=== PATIENT | female | born 1970 | race Caucasian/White ===

== ENCOUNTER 2020-05-23 03:33 | Emergency (ER) | payer MEDICAID, OTHER ==
[2020-05-23] MEDS ORDERED: Boostrix 0.5 ML (Tdap) VIAL ONE (04:08)
[2020-05-23] MEDS ORDERED: Sodium Chloride Irrig Solution 250 ML ONE (04:54)
--- NOTE | 2020-05-23 07:44 | RAD ---
EXAM: 2 views of the left forearm HISTORY: Dog bite to the form with pain COMPARISON: None FINDINGS: There is no evidence of acute fracture or dislocation. Moderate soft tissue swelling is see n. Air is seen in the soft tissues. Slight radiopaque structures along the volar aspect of the forearm likely represent folds of skin rather than radiopaque foreign bodies in the soft tissues. No degenerative changes are seen in the wrist or elbow. IMPRESSION: No evidence of acute osseous abnormality.
== END 2020-05-23 04:48 | disposition home or self-care (01) ==
LOC: MADERS 03:33
DX: S51.852A Open bite of left forearm, initial encounter (principal); I10 Essential (primary) hypertension; W54.0XXA Bitten by dog, initial encounter
CPT/HCPCS: 90471; 90715

== ENCOUNTER 2020-05-25 17:57 | Emergency (ER) | payer OTHER ==
[2020-05-25] MEDS ORDERED: Lidocaine 2% w/Epinephrine 1:200K 20 ML VIAL ONE (20:14)
[2020-05-25] MEDS ORDERED: Sodium Chloride Irrig Solution 250 ML ONE (21:07)
== END 2020-05-25 20:43 | disposition home or self-care (01) ==
LOC: MADERS 17:57
DX: S51.852A Open bite of left forearm, initial encounter (principal); S51.812A Laceration without foreign body of left forearm, initial encounter; S50.811A Abrasion of right forearm, initial encounter; I10 Essential (primary) hypertension; Z79.899 Other long term (current) drug therapy; W54.0XXA Bitten by dog, initial encounter
CPT/HCPCS: 12002

== ENCOUNTER 2020-09-04 08:49 | Emergency (ER) | payer MEDICAID, OTHER | END 2020-09-04 10:01 | disposition home or self-care (01) | LOC: MADERS 08:49 | DX: L02.511 Cutaneous abscess of right hand (principal); A69.20 Lyme disease, unspecified; K59.00 Constipation, unspecified; G43.909 Migraine, unspecified, not intractable, without status migrainosus; I10 Essential (primary) hypertension | CPT/HCPCS: 99283 ==

== ENCOUNTER 2021-07-01 10:01 | Emergency (ER) | payer OTHER | END 2021-07-01 11:39 | disposition home or self-care (01) | LOC: MADERS 10:01 | DX: S89.92XA Unspecified injury of left lower leg, initial encounter (principal); M17.12 Unilateral primary osteoarthritis, left knee; I10 Essential (primary) hypertension; X50.1XXA Overexertion from prolonged static or awkward postures, initial encounter; Z79.899 Other long term (current) drug therapy ==

== ENCOUNTER 2021-10-15 14:55 | Outpatient (CLI) | payer OTHER ==
[2021-10-15 15:28] LABS: CKMB 1.8 ng/mL (0-6.6)
== END 2021-10-15 14:56 | disposition home or self-care (01) ==
LOC: MADEKG 14:55
PROVIDERS: ATTEND Family Medicine
DX: R07.89 Other chest pain (principal); R06.00 Dyspnea, unspecified
CPT/HCPCS: 36415; 71046; 82553; 84484; 93005; 93010

== ENCOUNTER 2021-12-15 14:56 | Emergency (ER) | payer MEDICAID | END 2021-12-15 17:30 | disposition home or self-care (01) | LOC: MADERS 14:56 | DX: M19.011 Primary osteoarthritis, right shoulder (principal); G89.29 Other chronic pain; M25.511 Pain in right shoulder; I10 Essential (primary) hypertension ==

== ENCOUNTER 2022-05-17 08:55 | Outpatient (CLI) | payer OTHER | END 2022-05-17 08:56 | disposition home or self-care (01) | LOC: MADRAD 08:55 | PROVIDERS: ATTEND Family Medicine | DX: R06.00 Dyspnea, unspecified (principal) | CPT/HCPCS: 71046 ==

== ENCOUNTER 2022-06-04 09:59 | Outpatient (CLI) | payer OTHER | END 2022-06-04 10:00 | disposition home or self-care (01) | LOC: MADCT 09:59 | PROVIDERS: ATTEND Family Medicine | DX: R31.29 Other microscopic hematuria (principal); N20.0 Calculus of kidney; N28.9 Disorder of kidney and ureter, unspecified; K57.30 Diverticulosis of large intestine without perforation or abscess without bleeding; M47.816 Spondylosis without myelopathy or radiculopathy, lumbar region; M43.16 Spondylolisthesis, lumbar region; M48.061 Spinal stenosis, lumbar region without neurogenic claudication; Z90.49 Acquired absence of other specified parts of digestive tract; Z90.710 Acquired absence of both cervix and uterus | CPT/HCPCS: 74176 ==

== ENCOUNTER 2022-06-10 15:16 | Emergency (ER) | payer OTHER, MEDICAID ==
[~2022-06-10 15:16] MED LIST: Iopamidol 370 76% 100 ML VIAL ONE
[2022-06-10 15:45] LABS: #Basophils 0.2 thou/uL (0.0-0.2); #Eosinphils 0.4 thou/uL (0.0-0.7); #Lymphocytes 2.3 thou/uL (1.20-3.40); #Monocytes 0.5 thou/uL (0.11-0.59); #Neutrophils 4.3 thou/uL (1.40-6.50); %Basophils 2.5 % (0.0-1.0); %Eosinophils 5.6 % (0.0-10.0); %Lymphocytes 29.5 % (21.0-51.0); %Monocytes 7.1 % (0.0-10.0); %Neutrophils 55.4 % (42.0-75.0); Hemoglobin 13.6 g/dL (12.0-16.0); Mean Corpuscular HGB CONC 34.1 g/dL (32.0-36.0); Mean Corpuscular Volume 87.9 fl (78.0-98.0); Mean Platelet Volume 6.5 fL (7.4-10.4); Platelet Count 327 10x3/uL (130-400); Red Blood Cell (RBC) Count 4.53 mill/uL (4.20-5.40); White Blood Cell (WBC) Count 7.7 10x3/uL (4.8-10.8)
[2022-06-10 15:49] LABS: INR-International Normal Ratio 0.9; Prothrombin Time 12.6 sec (12.0-14.7)
[2022-06-10 15:50] LABS: PTT 32.2 sec (22.9-36.1)
[2022-06-10 15:59] LABS: ALT (SGPT) 14 U/L (8-55); AST (SGOT) 17 U/L (5-34); Albumin 3.9 g/dL (3.5-5.0); Alkaline Phosphatase 83 U/L (40-110); Anion Gap 13 mmol/L (10-20); BUN (Urea Nitrogen) 11 mg/dL (9.8-20.1); Bilirubin, Total 0.3 mg/dL (0.2-1.2); CK (CPK) 153 U/L (29-168); Calc. Creatinine Clearance 0 mL/min (70-130); Calcium 8.7 mg/dL (7.8-10.44); Carbon Dioxide 23 mmol/L (22-29); Chloride 109 mmol/L (98-107); Estimated GFR 80; Globulin 2.6 g/dL (2.4-3.5); Glucose 116 mg/dL (70-105); Lipase 44 U/L (8-78); Magnesium 1.9 mg/dL (1.6-2.6); Potassium 3.7 mmol/L (3.5-5.1); Protein, Total 6.5 g/dL (6.0-8.3); Sodium 141 mmol/L (136-145)
[2022-06-10 16:42] LABS: Bilirubin Negative (Negative); Blood, Urine Negative (Negative); Clarity Clear (Clear); Glucose, Urine (Dipstick) Negative (Negative); Ketone, Urine Negative (Negative); Leukocyte Negative (Negative); Nitrite Negative (Negative); Protein, Urine (Dipstick) Negative (Neg-Trace); Urobilinogen 0.2 mg/dL (Less than 2)
[2022-06-10] MEDS ORDERED: Mag-Al Plus 1200 MG/1200 MG/120 MG/30 ML UDCUP ONE (16:42)
[2022-06-10] MEDS ORDERED: Ketorolac Tromethamine 30 MG/ML VIAL ONE (16:42)
[2022-06-10] MEDS ORDERED: Lidocaine Viscous Sol 2% 15 ml UD Cup ONE (16:42)
[2022-06-10 17:59] LABS: Troponin I Less than 0.010 ng/mL (< 0.028)
[2022-06-10] MEDS ORDERED: Sucralfate 1 GM TAB ONE (18:17)
[2022-06-10] MEDS ORDERED: Pantoprazole 40 MG VIAL ONE (18:17)
== END 2022-06-10 18:43 | disposition home or self-care (01) ==
LOC: MADERS 15:16
DX: R07.89 Other chest pain (principal); I10 Essential (primary) hypertension
CPT/HCPCS: 71045; 71275; 80053; 81003; 82550; 83605; 83690; 83735; 83880; 84443; 84484; 85025; 85379; 85610; 85730; 93005; 96374; 96375; C9113; J1885; Q9967

== ENCOUNTER 2022-06-29 11:45 | Emergency (ER) | payer OTHER ==
[2022-06-29] MEDS ORDERED: Aspirin Chewable 81 MG TAB ONE (12:09)
[2022-06-29 12:21] LABS: #Basophils 0.2 thou/uL (0.0-0.2); #Eosinphils 0.5 thou/uL (0.0-0.7); #Lymphocytes 2.8 thou/uL (1.20-3.40); #Monocytes 0.5 thou/uL (0.11-0.59); #Neutrophils 6.2 thou/uL (1.40-6.50); %Basophils 1.6 % (0.0-1.0); %Eosinophils 5.3 % (0.0-10.0); %Lymphocytes 27.3 % (21.0-51.0); %Monocytes 4.9 % (0.0-10.0); Hemoglobin 14.1 g/dL (12.0-16.0); Mean Corpuscular HGB CONC 34.1 g/dL (32.0-36.0); Mean Corpuscular Hemoglobin 29.9 pg (27.0-31.0); Mean Corpuscular Volume 87.7 fl (78.0-98.0); Mean Platelet Volume 6.5 fL (7.4-10.4); Platelet Count 378 10x3/uL (130-400); RBC Distribution Width 11.9 % (11.5-14.5); Red Blood Cell (RBC) Count 4.71 mill/uL (4.20-5.40); White Blood Cell (WBC) Count 10.1 10x3/uL (4.8-10.8)
[2022-06-29 12:36] LABS: ALT (SGPT) 19 U/L (8-55); AST (SGOT) 17 U/L (5-34); Alkaline Phosphatase 105 U/L (40-110); Anion Gap 12 mmol/L (10-20); BUN (Urea Nitrogen) 12 mg/dL (9.8-20.1); Bilirubin, Total 0.5 mg/dL (0.2-1.2); Calc. Creatinine Clearance 0 mL/min (70-130); Calcium 9.1 mg/dL (7.8-10.44); Carbon Dioxide 23 mmol/L (22-29); Chloride 105 mmol/L (98-107); Estimated GFR 90; Globulin 2.9 g/dL (2.4-3.5); Glucose 147 mg/dL (70-105); Potassium 3.4 mmol/L (3.5-5.1); Protein, Total 6.9 g/dL (6.0-8.3); Sodium 137 mmol/L (136-145)
[2022-06-29] MEDS ORDERED: Nitroglycerin 0.4 MG TAB 1 EACH ONE (12:37)
[2022-06-29] MEDS ORDERED: Acetaminophen 500 MG TAB ONE (12:37)
[2022-06-29] MEDS ORDERED: Potassium Chloride 20 MEQ TAB ONE (12:48)
[2022-06-29] MEDS ORDERED: Morphine 4 MG/ML VIAL ONE (13:25)
== END 2022-06-29 15:35 | disposition home or self-care (01) ==
LOC: MADERS 11:45
DX: R07.89 Other chest pain (principal); M79.601 Pain in right arm; I10 Essential (primary) hypertension
CPT/HCPCS: 71045; 80053; 83690; 83880; 84484; 85025; 93005; 94760; 96374; J2270

== ENCOUNTER 2022-08-07 09:52 | Outpatient (CLI) | payer OTHER | END 2022-08-07 09:53 | disposition home or self-care (01) | LOC: MADRAD 09:52 | PROVIDERS: ATTEND Family Medicine | DX: R06.00 Dyspnea, unspecified (principal) | CPT/HCPCS: 71046 ==

== ENCOUNTER 2022-11-13 08:52 | Emergency (ER) | payer OTHER ==
[2022-11-13 09:30] LABS: Hemoglobin 13.9 g/dL (12.0-16.0); Mean Corpuscular HGB CONC 33.9 g/dL (32.0-36.0); Mean Corpuscular Hemoglobin 31.7 pg (27.0-31.0); Mean Corpuscular Volume 93.4 fl (78.0-98.0); Mean Platelet Volume 7.5 fL (7.4-10.4); Platelet Count 424 10x3/uL (130-400); Red Blood Cell (RBC) Count 4.38 mill/uL (4.20-5.40)
[2022-11-13 09:35] LABS: Band 1 % (5-11); MDiff Complete? YES; Manual Diff?? YES; Neutrophil 70 % (42-75)
[2022-11-13 09:36] LABS: Anisocytosis SLIGHT = 6-15 cells (100X) (0-5/hpf); Eosinophils 4 % (0-10); Lymphocytes 22 % (21-51); Monocytes 3 % (0-10); Platelet Adequacy Comment Appears Adequate
[2022-11-13 09:39] LABS: ALT (SGPT) 18 U/L (8-55); AST (SGOT) 17 U/L (5-34); Alkaline Phosphatase 84 U/L (40-110); Anion Gap 15 mmol/L (10-20); BUN (Urea Nitrogen) 15 mg/dL (9.8-20.1); Bilirubin, Total 0.2 mg/dL (0.2-1.2); CK (CPK) 130 U/L (29-168); Calc. Creatinine Clearance 0 mL/min (70-130); Calcium 9.2 mg/dL (7.8-10.44); Carbon Dioxide 22 mmol/L (22-29); Chloride 105 mmol/L (98-107); Estimated GFR 83; Glucose 93 mg/dL (70-105); Potassium 3.5 mmol/L (3.5-5.1); Sodium 138 mmol/L (136-145)
[2022-11-13] MEDS ORDERED: Metoprolol Tartrate 50 MG TAB ONE (10:10)
[2022-11-13] MEDS ORDERED: Nitroglycerin 2% Ointment 1 INCH/1 GM Packet ONE (10:10)
== END 2022-11-13 11:09 | disposition home or self-care (01) ==
LOC: MADERS 08:52
DX: R07.2 Precordial pain (principal); I10 Essential (primary) hypertension
CPT/HCPCS: 71046; 80053; 82550; 83880; 84484; 85025; 93005

== ENCOUNTER 2023-06-01 10:03 | Emergency (ER) | payer MEDICARE, OTHER ==
[2023-06-01] MEDS ORDERED: diphenhydrAMINE 50 MG/ML VIAL ONE ×2 (10:13→12:20)
[2023-06-01] MEDS ORDERED: methylPREDNISolone Sod Succ/PF 125 MG/2 ML VIAL ONE (10:14)
[2023-06-01] MEDS ORDERED: Famotidine/PF 20 mg/2ml Vial ONE (10:14)
== END 2023-06-01 13:04 | disposition home or self-care (01) ==
LOC: MADERS 10:03
DX: L50.0 Allergic urticaria (principal); K21.9 Gastro-esophageal reflux disease without esophagitis; I10 Essential (primary) hypertension; G43.909 Migraine, unspecified, not intractable, without status migrainosus; Z79.899 Other long term (current) drug therapy
CPT/HCPCS: 94760; 96374; 96375; 96376; J1200; J2930; S0028

== ENCOUNTER 2024-02-01 08:36 | Emergency (ER) | payer MEDICARE | END 2024-02-01 10:00 | disposition home or self-care (01) | LOC: MADERS 08:36 | DX: M77.8 Other enthesopathies, not elsewhere classified (principal); I10 Essential (primary) hypertension | CPT/HCPCS: 99283 ==